=== PATIENT | male | born 1940 | race Caucasian/White ===

== ENCOUNTER 2019-03-22 17:56 | Emergency (ER) | payer OTHER ==
[~2019-03-22] VITALS: Ht 170.2 cm; Wt 69.4 kg
[2019-03-22] MEDS ORDERED: COZAAR100 MG (18:04)
[2019-03-22] MEDS ORDERED: VERELAN180 MG (18:04)
[2019-03-22] MEDS ORDERED: ZOCOR40 MG (18:05)
== END 2019-03-22 19:36 | disposition home or self-care (01) ==
LOC: ER 17:56
DX: K62.5 Hemorrhage of anus and rectum (principal); K64.8 Other hemorrhoids